=== PATIENT | male | born 1995 | race Caucasian/White ===

== ENCOUNTER 2020-12-14 16:51 | Inpatient (IN) | payer OTHER ==
[~2020-12-14] VITALS: Ht 172.7 cm; Wt 113.4 kg
[2020-12-14 17:25] VITALS: BP 160/87
--- NOTE | 2020-12-14 17:28 | NUR ---
PT SENT TO LOBBY
[2020-12-14] MEDS ORDERED: ONDANSETRON 4 MG ODT PO ONE (18:05)
[2020-12-14] MEDS ORDERED: ACETAMINOPHEN EXTRA STRENGTH 500 MG TAB PO ONE (18:05)
[2020-12-14] MEDS ORDERED: ALUMINUM HYD/MAG/SIMETHICONE 30 ML, DICYCLOMINE HCL LIQUID 20 MG, LIDOCAINE VISCOUS 2% ... PO ONE ×3 (18:05)
[2020-12-14] MEDS ORDERED: ALUMINUM HYD/MAG/SIMETHICONE 30 ML UDC ONE (18:39)
[2020-12-14] MEDS ORDERED: DICYCLOMINE HCL LIQUID 10 MG/5 ML UDC ONE (18:39)
--- NOTE | 2020-12-14 18:40 | NUR ---
PT AMBULATED TO BED
--- NOTE | 2020-12-14 18:45 | NUR ---
25/M BIB SELF WITH C/O EPIGASTRIC PAIN SINCE THIS MORNING. STATES HE WOKE UP WITH THE PAIN, DENIES V/D. REPORTS TAKING TYLENOL AND NAPROSYN TODAY WITH NO RELIEF. PT STATES 3/10 PRESSURE PAIN WITH NAUSEA. ABD SOFT NON TENDER. MEDHX: DENIES ALLERGIES: DENIES
[2020-12-14 18:54] LABS: BASOPHILS % (AUTO) 0.4 % (0.0-2.0); EOSINOPHILS % (AUTO) 0.3 % (0.0-4.0); HEMATOCRIT 48.9 % (36-52); HEMOGLOBIN 16.9 g/dL (12.0-18.0); LYMPHOCYTES # (AUTO) 2.1 K/uL (2.0-11.5); MEAN CORPUSCULAR HEMOGLOBIN 32 pg (27-31); MEAN CORPUSCULAR HGB CONC 35 g/dL (33-37); MONOCYTES # (AUTO) 0.4 K/uL (0.8-1.0); MONOCYTES % (AUTO) 3.7 % (1.7-9.3); NEUTROPHILS % (AUTO) 73.6 % (42.2-75.2); PLATELET COUNT (AUTO) 253 K/uL (140-450); RED BLOOD CELL COUNT(AUTO) 5.32 MIL/uL (4.20-6.10); WHITE BLOOD COUNT (AUTO) 9.5 K/uL (4.8-10.8)
[2020-12-14 19:09] LABS: ALBUMIN 4.3 g/dL (3.4-5.0); ANION GAP 19.4 (8-16); CARBON DIOXIDE 19.7 mmol/L (21-32); CREATININE 1.2 mg/dL (0.6-1.3); POTASSIUM 4.1 mmol/L (3.5-5.1); TOTAL BILIRUBIN 0.7 mg/dL (0.0-1.0)
[2020-12-14] MEDS ORDERED: NACL 0.9% 2,000 ML IV ONE (19:15)
[2020-12-14] MEDS ORDERED: MORPHINE SULFATE 4 MG/ML SYR IVP ONE (19:15)
--- NOTE | 2020-12-14 19:19 | NUR ---
Pt report given to MARCUS CAMEJO. Transfer of care at this time.
--- NOTE | 2020-12-14 19:20 | NUR ---
REPORT RECEIVED FROM BASHIR CAIN AT THIS TIME. PT PLACED IN GOWN AND ON DELIVERER OUTSIDE. WILL CONTINUE TO MONITOR.
--- NOTE | 2020-12-14 19:35 | NUR ---
PT REPORTS 2/10 PAIN. PT REQUESTS TO HOLD OFF ON MORPHINE 4MG IVP AT THIS TIME. WILL CONTINUE TO MONITOR.
[2020-12-14] MEDS ORDERED: MORPHINE SULFATE 2 MG/ML SYR IVP PRN (19:55)
[2020-12-14] MEDS ORDERED: MORPHINE SULFATE 4 MG/ML SYR IVP PRN (19:55)
--- NOTE | 2020-12-14 20:59 | NUR ---
1ST ATTEMPT TO CALL ANGELY FOR REPORT WITH NO ANSWER. WILL ATTEMPT AGAIN.
--- NOTE | 2020-12-14 21:08 | NUR ---
2ND CALL TO BASHIR AU FOR REPORT WITH NO ANSWER.
--- NOTE | 2020-12-14 21:13 | NUR ---
CALLED SANDOR FOR REPORT. PER SANDOR, WILL GIVE A CALL BACK IN 30 MINS.
--- NOTE | 2020-12-14 21:25 | NUR ---
PT SEEN WITH EYES CLOSED. VISIBLE CHEST RISE AND FALL NOTED. AROUSABLE TO VOICE AND LIGHT TOUCH. PT REMAINS NPO AT THIS TIME. WILL CONTINUE TO MONITOR.
[2020-12-14] MEDS: NACL 0.9% 1,000 ML IV SCH (22:00)
--- NOTE | 2020-12-14 22:25 | NUR ---
REPORT CALLED TO BASHIR PATTEN . ETA TO FLOOR 5 MINS.
--- NOTE | 2020-12-14 22:41 | NUR ---
PT TRANSPORTED TO ROOM 105A VIA W/C BY EMT
[2020-12-15 02:16] VITALS: BP 124/74
[2020-12-15] MEDS: NACL 0.9% 1,000 ML IV SCH ×5 (02:35→23:16)
--- NOTE | 2020-12-15 07:30 | NUR ---
REPORT RECEIVED FROM PM SHIFT RN FOR CONTINUITY OF CARE. PT IS A&0X4. ABLE TO MAKE TO NEEDS KNOWN. IV SITE RT FOREARM 20G, INFUSING NS AT 150 ML/HR. SKIN INTACT, WARM AND DRY. BED LOCKED IN LOWEST POSITION. SAFETY PRECAUTIONS IN PLACE. CALL LIGHT WITHIN IN REACH, WILL CONTINUE TO MONITOR.
[2020-12-15 08:00] VITALS: BP 118/68
--- NOTE | 2020-12-15 11:00 | NUR ---
PATIENT LYING DOWN IN BED SLEEPING, AROUSABLE BY VOICE. NO DISTRESS NOTED. WILL CONTINUE TO MONITOR.
[2020-12-15] MEDS ORDERED: DOCUSATE SODIUM 100 MG GELCAP PO PRN (11:55)
[2020-12-15] MEDS ORDERED: IBUPROFEN 800 MG TAB PO PRN (11:55)
[2020-12-15] MEDS ORDERED: LORazepam 2 MG/ML VIAL IM/IVP PRN (11:55)
[2020-12-15] MEDS ORDERED: ONDANSETRON 4 MG/2 ML VIAL IM/IVP PRN (11:55)
[2020-12-15] MEDS ORDERED: MAG SULF 2000 MG/WATER PREMIX 50 ML IV PRN (11:55)
[2020-12-15] MEDS ORDERED: POTASSIUM CHLORIDE 10 MEQ TABER PO PRN (11:55)
[2020-12-15] MEDS ORDERED: ZOLPIDEM 5 MG TAB PO PRN (11:55)
[2020-12-15] MEDS ORDERED: ACETAMINOPHEN 325 MG TAB PO PRN (11:55)
[2020-12-15] MEDS ORDERED: DEXTROSE 50% 50 ML SYR IVP PRN (12:00)
[2020-12-15 13:35] LABS: BASOPHILS % (AUTO) 0.4 % (0.0-2.0); EOSINOPHILS # (AUTO) 0.1 K/uL (0-0.4); HEMATOCRIT 42.2 % (36-52); HEMOGLOBIN 14.5 g/dL (12.0-18.0); LYMPHOCYTES # (AUTO) 2.2 K/uL (2.0-11.5); LYMPHOCYTES % (AUTO) 32.5 % (20.5-51.1); MEAN CORPUSCULAR HEMOGLOBIN 32 pg (27-31); MEAN CORPUSCULAR HGB CONC 34 g/dL (33-37); MEAN CORPUSCULAR VOLUME 93.3 fL (80-94); MONOCYTES # (AUTO) 0.4 K/uL (0.8-1.0); MONOCYTES % (AUTO) 5.2 % (1.7-9.3); NEUTROPHILS # (AUTO) 4.2 K/uL (1.8-7.7); NEUTROPHILS % (AUTO) 60.9 % (42.2-75.2); PLATELET COUNT (AUTO) 203 K/uL (140-450); RED BLOOD CELL COUNT(AUTO) 4.52 MIL/uL (4.20-6.10); RED CELL DISTRIBUTION WIDTH 12.7 % (11.6-13.7); WHITE BLOOD COUNT (AUTO) 6.8 K/uL (4.8-10.8)
[2020-12-15 13:44] LABS: ANION GAP 15.4 (8-16); CARBON DIOXIDE 22.4 mmol/L (21-32); CREATININE 0.9 mg/dL (0.6-1.3); POTASSIUM 3.8 mmol/L (3.5-5.1)
[2020-12-15 13:58] LABS: PHOSPHORUS 2.2 mg/dL (2.5-4.9); THYROID STIMULATING HORMONE 0.91 uIU/mL (0.34-3.74); TOTAL BILIRUBIN 0.6 mg/dL (0.0-1.0)
--- NOTE | 2020-12-15 13:58 | NUR ---
PATIENT LYING DOWN IN BED. NO DISTRESS NOTED. DENIES ANY PAIN. WILL CONTINUE TO MONITOR.
[2020-12-15 14:15] LABS: BILIRUBIN,DIRECT 0.2 mg/dL (0.0-0.3)
[2020-12-15 14:16] LABS: ALBUMIN 3.3 g/dL (3.4-5.0); MAGNESIUM 2.1 mg/dL (1.8-2.4)
[2020-12-15 16:00] VITALS: BP 117/58
[2020-12-15] MEDS: BLOOD GLUCOSE MONITORING 1 DEV DEV FS SCH ×2 (16:56→20:33)
--- NOTE | 2020-12-15 18:17 | NUR ---
PATIENT SITTING DOWN IN BED ON HIS PHONE. NO DISTRESS NOTED. DENIES ANY PAIN. WILL CONTINUE TO MONITOR.
--- NOTE | 2020-12-15 19:24 | NUR ---
GAVE REPORT TO FRUIT LOADER NURSE FOR CONTINUITY OF CARE. PATIENT IN STABLE CONDITION.
--- NOTE | 2020-12-15 19:25 | NUR ---
RECEIVED ENDORSEMENT FROM MORNING SHIFT REGARDING PATIENT'S CONTINUITY OF CARE. PATIENT STABLE IN BED. A&OX4. RESPIRATIONS EVEN AND UNLABORED. ON ROOM AIR. NO APPARENT SIGNS AND SYMPTOMS OF ACUTE RESPIRATORY DISTRESS. SKIN INTACT, WARM, AND DRY. PATIENT DENIES PAIN 0/10. RIGHT 20G ON FOREARM INTACT/PATENT WITH NS INFUSING AT 60 ML/HOUR. PLAN OF CARE AND WHITE BOARD COMMUNICATION UPDATED. ALL SAFETY MEASURES IN PLACE. BED ON LOW/LOCKED POSITION. CALL LIGHT WITHIN REACH. ENCOURAGED PATIENT TO USE CALL LIGHT FOR ANY NEEDS/ASSISTANCE. WILL CONTINUE TO MONITOR.
[2020-12-15 19:37] LABS: APPEARANCE,URINE CLEAR (CLEAR); BILIRUBIN,URINE NEGATIVE (NEGATIVE); BLOOD, URINE NEGATIVE (NEGATIVE); COLOR,URINE YELLOW (YELLOW); LEUKOCYTE ESTERASE ,URINE NEGATIVE (NEGATIVE); NITRITE, URINE NEGATIVE (NEGATIVE); UGLUCOSE 3+ (NEGATIVE)
--- NOTE | 2020-12-15 20:00 | NUR ---
PATIENT'S PLAN OF CARE WAS DISCUSSED AND REVIEWED WITH VIDEO GAME ANIMATOR: SHAJI HSIEH.
[2020-12-15 20:03] LABS: BARBITURATE, URINE NEGATIVE ng/ml (NEG <=200); BENZODIAZEPINE, URINE NEGATIVE ng/mL (NEG <=200); CANNABINOID, URINE NEGATIVE ng/mL (NEG <=50); COCAINE, URINE NEGATIVE ng/mL (NEG <=300); OPIATE, URINE NEGATIVE ng/mL (NEG <=2000); PHENCYCLIDINE SCREEN,URINE NEGATIVE ng/mL (NEG <=25)
--- NOTE | 2020-12-15 20:30 | NUR ---
CHECKED PATIENT'S BLOOD SUGAR. RESULT IS 275. WILL ADMINISTER SLIDING SCALE PER MD ORDER.
[2020-12-15] MEDS: INSULIN LISPRO SLIDING SCALE 100 UNITS/ML VIAL SUBQ PRN (20:36)
--- NOTE | 2020-12-15 21:25 | NUR ---
CHECKED ON PATIENT. PATIENT IS AWAKE AND STABLE. NO APPARENT S/SX OF ACUTE RESPIRATORY DISTRESS. DENIES PAIN 0/10. PATIENT REQUESTED ICE CHIPS.
--- NOTE | 2020-12-15 23:16 | NUR ---
REPLACED EMPTY BAG OF NS. ASSESSED IV SITE ON RIGHT FOREARM 20G. IV SITE IS INTACT AND PATENT. NEW BAG OF NS HANGING AND INFUSING AT 60 ML/HOUR. PATIENT DENIES PAIN 0/10. ALL SAFETY MEASURES IN PLACE. CALL LIGHT WITHIN REACH. WILL CONTINUE TO MONITOR.
[2020-12-16] VITALS: BP 113/69
--- NOTE | 2020-12-16 01:01 | NUR ---
ROUNDED ON PATIENT. STABLE AND SLEEPING COMFORTABLY IN SUPINE POSITION. BREATHING SYMMETRICAL. NO APPARENT S/SX OF ACUTE RESPIRATORY DISTRESS. ALL SAFETY MEASURES IN PLACE. CALL LIGHT WITHIN REACH. WILL CONTINUE TO MONITOR.
--- NOTE | 2020-12-16 03:01 | NUR ---
ROUNDED ON PATIENT. STABLE AND SLEEPING COMFORTABLY. RESPIRATIONS EVEN AND UNLABORED. NO APPARENT S/SX OF ACUTE RESPIRATORY DISTRESS. ALL SAFETY MEASURES IN PLACE. CALL LIGHT WITHIN REACH. WILL CONTINUE TO MONITOR.
--- NOTE | 2020-12-16 05:01 | NUR ---
CHECKED ON PATIENT. STABLE AND SLEEPING COMFORTABLY. BREATHING SYMMETRICAL. NO APPARENT S/SX OF ACUTE RESPIRATORY DISTRESS. CALL LIGHT WITHIN REACH. WILL CONTINUE TO MONITOR.
[2020-12-16] MEDS: BLOOD GLUCOSE MONITORING 1 DEV DEV FS SCH ×3 (05:43→17:13)
[2020-12-16] MEDS: INSULIN LISPRO SLIDING SCALE 100 UNITS/ML VIAL SUBQ PRN ×3 (05:45→17:14)
--- NOTE | 2020-12-16 05:45 | NUR ---
BS CHECKED - 174. INSULIN LISPRO SLIDING SCALE COVERAGE ADMINISTERED. HEALTH TEACHINGS GIVEN ON THE IMPORTANCE OF DIET, VEGETABLE AND FRUITS ON HIS HEALTH. AVOID FRIED AND OTHER HIGH CHOLESTEROL FOOD LIKE FAST FOOD ITEMS WELL SWEET FOODS AND CARBONATED DRINKS TO CONTROL DIABETES AND EXERCISING REGULARLY. VERBALIZED UNDERSTANDING.
[2020-12-16 06:18] LABS: T4 (THYROXINE) 4.8 ug/dL (4.5-12.0)
[2020-12-16 07:06] LABS: BASOPHILS % (AUTO) 0.4 % (0.0-2.0); EOSINOPHILS # (AUTO) 0.1 K/uL (0-0.4); EOSINOPHILS % (AUTO) 2.1 % (0.0-4.0); HEMATOCRIT 42.9 % (36-52); HEMOGLOBIN 14.7 g/dL (12.0-18.0); LYMPHOCYTES # (AUTO) 2.2 K/uL (2.0-11.5); LYMPHOCYTES % (AUTO) 36.3 % (20.5-51.1); MEAN CORPUSCULAR HEMOGLOBIN 32 pg (27-31); MEAN CORPUSCULAR HGB CONC 34 g/dL (33-37); MEAN CORPUSCULAR VOLUME 93.8 fL (80-94); MONOCYTES # (AUTO) 0.3 K/uL (0.8-1.0); MONOCYTES % (AUTO) 5.8 % (1.7-9.3); NEUTROPHILS # (AUTO) 3.3 K/uL (1.8-7.7); NEUTROPHILS % (AUTO) 55.4 % (42.2-75.2); PLATELET COUNT (AUTO) 192 K/uL (140-450); RED BLOOD CELL COUNT(AUTO) 4.58 MIL/uL (4.20-6.10); RED CELL DISTRIBUTION WIDTH 12.7 % (11.6-13.7)
[2020-12-16 07:18] LABS: ANION GAP 16.7 (8-16); CREATININE 0.8 mg/dL (0.6-1.3); POTASSIUM 3.7 mmol/L (3.5-5.1)
--- NOTE | 2020-12-16 07:20 | NUR ---
CONDITION REMAIN STABLE. ENDORSED TO AM SHIFT NURSE FOR CONTINUITY OF CARE.
--- NOTE | 2020-12-16 07:39 | NUR ---
RECEIVED ENDORSEMENT FROM INCINERATOR PLANT SUPERVISOR REGARDING PATIENT'S CONTINUITY OF CARE. PATIENT STABLE IN BED. A&OX4. RESPIRATIONS EVEN AND UNLABORED. ON ROOM AIR. NO APPARENT SIGNS AND SYMPTOMS OF ACUTE RESPIRATORY DISTRESS. SKIN INTACT, WARM, AND DRY. PATIENT DENIES PAIN 0/10. RIGHT 20G ON FOREARM INTACT/PATENT WITH NS INFUSING AT 60 ML/HOUR. PLAN OF CARE AND WHITE BOARD COMMUNICATION UPDATED. ALL SAFETY MEASURES IN PLACE. BED ON LOW/LOCKED POSITION. CALL LIGHT WITHIN REACH. ENCOURAGED PATIENT TO USE CALL LIGHT FOR ANY NEEDS/ASSISTANCE.
[2020-12-16 07:43] LABS: PHOSPHORUS 2.4 mg/dL (2.5-4.9)
[2020-12-16 08:00] VITALS: BP 125/72
--- NOTE | 2020-12-16 08:58 | NUR ---
PATIENT HAS BEEN SCREENED AND CATEGORIZED LOW NUTRITION RISK. PATIENT WILL BE SEEN WITHIN 7 DAYS OF ADMISSION. 12/21/[address]
--- NOTE | 2020-12-16 09:21 | NUR ---
PATIENT ON BED NO COMPLAINS, NO SOD NOTED, ALL SAFETY MEASURES ON PLACE CALLS LIGHT WITHIN REACH
--- NOTE | 2020-12-16 11:21 | NUR ---
PATIENT ON BED NO COMPLAINS, NO SOD NOTED, ALL SAFETY MEASURES ON PLACE CALLS LIGHT WITHIN REACH
[2020-12-16] MEDS ORDERED: BLOO-224 INH (12:36)
[2020-12-16] MEDS ORDERED: IBUP-1842 PO (12:36)
[2020-12-16] MEDS ORDERED: lancets (12:36)
[2020-12-16] MEDS ORDERED: METF-430 PO (12:36)
[2020-12-16] MEDS ORDERED: glucometer SUBQ (12:36)
[2020-12-16] MEDS ORDERED: POTASSIUM PHOSPHATE 15 MM in NACL 0.9% 250 ML IV SCH (13:00)
--- NOTE | 2020-12-16 13:05 | NUR ---
PATIENT ON BED NO COMPLAINS, NO SOD NOTED, ALL SAFETY MEASURES ON PLACE CALLS LIGHT WITHIN REACH
--- NOTE | 2020-12-16 14:38 | NUR ---
DC [age] YRS OLD MALE PATIENT WAS ADMITTED FROM HOME WITH A DX OF PANCREATITIS. LIPASE LEVEL 1068 ON ADMISSION ADMINISTERED IVF, AND CONTINUED HOME MEDS. LIPASE LEVEL 640. CT ABD AND US ABD SHOWED NO BOWEL OBSTRUCTION AND NO EVIDENCE OF CHOLECYSTITIS. DC PLAN TO GO HOME WHEN STABLE CM TO FOLLOW.
--- NOTE | 2020-12-16 15:09 | NUR ---
PATIENT ON BED NO COMPLAINS, SIDE, NO SOD NOTED, PLAN FOR PATIENT TO BE DISCHARGED, ALL SAFETY MEASURES ON PLACE CALLS LIGHT WITHIN REACH
[2020-12-16 15:22] VITALS: BP 125/72
[2020-12-16 16:00] VITALS: BP 139/77
--- NOTE | 2020-12-16 17:04 | NUR ---
PATIENT ON BED NO COMPLAINS, SIDE, NO SOD NOTED, PLAN FOR PATIENT TO BE DISCHARGED, ALL SAFETY MEASURES ON PLACE CALLS LIGHT WITHIN REACH
--- NOTE | 2020-12-16 19:53 | NUR ---
FULL BED SIDE REPORT GIVEN TO HEEL DIPPER NURSE Addendum: 12/16/20 at 2000 by Danna Hernandez RN RN PATIENT DISCHARGE PAPER READY, GIVEN TO HEEL DIPPER NURSE MELODIE, HE WILL BE DISCHARGING THE PATIENT SINCE PATIENT IV MEDICATION STILL RUNNING
--- NOTE | 2020-12-20 16:30 | NUR ---
DC PLANNING: SW CALL PATIENT AT AND DISCUSS PATIENT'S FOLLOW UP APPOINTMENT. PATIENT STATED THAT HE WANT'S TO MAKE HIS OWN FOLLOW UP APPOINTMENT WITH PCP. SW THANK PATIENT FOR THE INFORMATION AND ENDED THE CALL.
== END 2020-12-16 20:15 | disposition home or self-care (01) | DRG 282 ==
LOC: MED 16:51 → MTU 19:54
DX: K85.90 Acute pancreatitis without necrosis or infection, unspecified (principal); E11.00 Type 2 diabetes mellitus with hyperosmolarity without nonketotic hyperglycemic-hyperosmolar coma (NKHHC); E44.1 Mild protein-calorie malnutrition; K75.81 Nonalcoholic steatohepatitis (NASH); E87.1 Hypo-osmolality and hyponatremia; E83.39 Other disorders of phosphorus metabolism; E66.9 Obesity, unspecified; R74.01 Elevation of levels of liver transaminase levels; E11.65 Type 2 diabetes mellitus with hyperglycemia; E86.0 Dehydration; Z83.3 Family history of diabetes mellitus; Z68.38 Body mass index [BMI] 38.0-38.9, adult
CPT/HCPCS: 36415; 76705; 80048; 80053; 80076; 80305; 81003; 82150; 82465; 82948; 83036; 83690; 83735; 83880; 84100; 84134; 84436; 84443; 85025; 85610; 85730; 87081; 96360; 96361; 99285; J7030; Q0092; Q0162; Q9967

== ENCOUNTER 2022-11-17 15:54 | Inpatient (IN) | payer OTHER ==
[~2022-11-17] VITALS: Ht 172.7 cm; Wt 118.4 kg
[~2022-11-17 15:54] MED LIST: BLOO-224 INH; IBUP-1842 PO; METF-430 PO; glucometer SUBQ; lancets
[2022-11-17 16:23] VITALS: BP 148/90; PULSE 89; RESP 20; TEMP 97.8; O2SAT 96
[2022-11-17] MEDS ORDERED: ONDANSETRON 4 MG/2 ML VIAL IVP ONE (17:25)
[2022-11-17] MEDS ORDERED: NACL 0.9% 1,000 ML IV SCH ×2 (17:25→18:45)
[2022-11-17 17:40] LABS: BASOPHILS % (AUTO) 0.3 % (0.0-2.0); EOSINOPHILS # (AUTO) 0.1 K/uL (0-0.4); EOSINOPHILS % (AUTO) 1.5 % (0.0-4.0); HEMATOCRIT 51.3 % (36-52); HEMOGLOBIN 17.7 g/dL (12.0-18.0); LYMPHOCYTES # (AUTO) 2.2 K/uL (2.0-11.5); LYMPHOCYTES % (AUTO) 25.1 % (20.5-51.1); MEAN CORPUSCULAR HEMOGLOBIN 32 pg (27-31); MEAN CORPUSCULAR HGB CONC 34 g/dL (33-37); MEAN CORPUSCULAR VOLUME 91.5 fL (80-94); MONOCYTES # (AUTO) 0.5 K/uL (0.8-1.0); MONOCYTES % (AUTO) 5.4 % (1.7-9.3); NEUTROPHILS % (AUTO) 67.7 % (42.2-75.2); PLATELET COUNT (AUTO) 196 K/uL (140-450); RED BLOOD CELL COUNT(AUTO) 5.61 MIL/uL (4.20-6.10); RED CELL DISTRIBUTION WIDTH 12.9 % (11.6-13.7); WHITE BLOOD COUNT (AUTO) 8.8 K/uL (4.8-10.8)
[2022-11-17 17:48] LABS: ANION GAP 17.8 (8-16); CALCIUM 9.6 mg/dL (8.5-10.1); CARBON DIOXIDE 21.6 mmol/L (21-32); CREATININE 1.1 mg/dL (0.6-1.3); POTASSIUM 5.4 mmol/L (3.5-5.1)
[2022-11-17] MEDS ORDERED: INSULIN REGULAR, HUMAN 100 UNIT in NACL 0.9% 100 ML IV ONE ×2 (18:00)
[2022-11-17] MEDS ORDERED: POTASSIUM CHLORIDE 10 MEQ TABER PO PRN (18:45)
[2022-11-17] MEDS ORDERED: MORPHINE SULFATE 2 MG/ML SYR IVP PRN (18:45)
[2022-11-17] MEDS ORDERED: MAGNESIUM OXIDE 400 MG TAB PO PRN (18:45)
[2022-11-17] MEDS ORDERED: MAG SULF 2000 MG/WATER PREMIX 50 ML IV PRN (18:45)
[2022-11-17] MEDS ORDERED: ACETAMINOPHEN 325 MG TAB PO PRN (18:45)
[2022-11-17] MEDS ORDERED: KCL 20 MEQ IN 100 mL PREMIX 200 ML IV PRN (18:45)
[2022-11-17] MEDS ORDERED: HYDROcodone/APAP 5/325 MG 1 TAB TAB PO PRN (18:45)
[2022-11-17] MEDS ORDERED: INSULIN REGULAR, HUMAN 100 UNIT in NACL 0.9% 100 ML IV SCH ×2 (18:50)
[2022-11-17] MEDS: DEXT 5% / NACL 0.45% 1,000 ML IV SCH ×4 (19:20→23:44)
[2022-11-17] MEDS: INSULIN REGULAR, HUMAN 100 UNIT in NACL 0.9% 100 ML IV SCH ×4 (19:20→23:00)
[2022-11-17] MEDS: NACL 0.9% 1,000 ML IV SCH ×2 (19:20→21:53)
[2022-11-17 20:00] VITALS: BP 132/70; PULSE 91; RESP 20; TEMP 98.5; O2SAT 97
[2022-11-17] MEDS ORDERED: ONDANSETRON 4 MG/2 ML VIAL IVP PRN (20:05)
[2022-11-17] MEDS: BLOOD GLUCOSE MONITORING 1 DEV DEV FS SCH ×4 (20:59→23:33)
[2022-11-17] MEDS: FAMOTIDINE 20 MG/2 ML VIAL IV SCH (21:09)
[2022-11-17 21:43] LABS: APPEARANCE,URINE CLEAR (CLEAR); BILIRUBIN,URINE NEGATIVE (NEGATIVE); BLOOD, URINE NEGATIVE (NEGATIVE); COLOR,URINE YELLOW (YELLOW); LEUKOCYTE ESTERASE ,URINE NEGATIVE (NEGATIVE); NITRITE, URINE NEGATIVE (NEGATIVE); PH,URINE 5.5 (5.0-9.0); PROTEIN,URINE NEGATIVE (NEGATIVE); UGLUCOSE 3+ (NEGATIVE); UROBILINOGEN,URINE 0.2 EU/dL (0.2 - 1)
[2022-11-17 22:00] VITALS: BP 120/65; PULSE 95; RESP 14; TEMP 97.9; O2SAT 97
[2022-11-18] VITALS (10 sets, daily range): BP systolic 97–129; BP diastolic 54–81; PULSE 61–106; RESP 17–24; TEMP 96–98.6; O2SAT 96–98
[2022-11-18] MEDS: BLOOD GLUCOSE MONITORING 1 DEV DEV FS SCH ×5 (00:22→20:10)
[2022-11-18 00:27] LABS: ANION GAP 13.5 (8-16); CALCIUM 8.4 mg/dL (8.5-10.1); CARBON DIOXIDE 23.1 mmol/L (21-32); CREATININE 0.8 mg/dL (0.6-1.3); POTASSIUM 3.6 mmol/L (3.5-5.1)
[2022-11-18 00:29] LABS: MAGNESIUM 1.9 mg/dL (1.8-2.4); PHOSPHORUS 3.6 mg/dL (2.5-4.9)
[2022-11-18] MEDS ORDERED: NACL 0.9% 1,000 ML IV SCH (00:45)
[2022-11-18] MEDS ORDERED: DEXTROSE 50% 50 ML SYR IVP PRN (00:45)
[2022-11-18 06:07] LABS: BASOPHILS % (AUTO) 0.2 % (0.0-2.0); EOSINOPHILS # (AUTO) 0.1 K/uL (0-0.4); EOSINOPHILS % (AUTO) 1.8 % (0.0-4.0); HEMATOCRIT 42.5 % (36-52); HEMOGLOBIN 14.7 g/dL (12.0-18.0); LYMPHOCYTES # (AUTO) 1.3 K/uL (2.0-11.5); LYMPHOCYTES % (AUTO) 19.4 % (20.5-51.1); MEAN CORPUSCULAR HEMOGLOBIN 31 pg (27-31); MEAN CORPUSCULAR HGB CONC 35 g/dL (33-37); MEAN CORPUSCULAR VOLUME 90.2 fL (80-94); MONOCYTES # (AUTO) 0.6 K/uL (0.8-1.0); MONOCYTES % (AUTO) 9.3 % (1.7-9.3); NEUTROPHILS # (AUTO) 4.7 K/uL (1.8-7.7); NEUTROPHILS % (AUTO) 69.3 % (42.2-75.2); PLATELET COUNT (AUTO) 221 K/uL (140-450); RED BLOOD CELL COUNT(AUTO) 4.71 MIL/uL (4.20-6.10); RED CELL DISTRIBUTION WIDTH 13.1 % (11.6-13.7); WHITE BLOOD COUNT (AUTO) 6.7 K/uL (4.8-10.8)
[2022-11-18 06:28] LABS: ALBUMIN 3.2 g/dL (3.4-5.0); ANION GAP 14.8 (8-16); CALCIUM 8.2 mg/dL (8.5-10.1); CARBON DIOXIDE 21.9 mmol/L (21-32); CREATININE 0.9 mg/dL (0.6-1.3); POTASSIUM 3.7 mmol/L (3.5-5.1); TOTAL BILIRUBIN 0.8 mg/dL (0.0-1.0); TOTAL PROTEIN, SERUM 6.7 g/dL (6.4-8.2)
[2022-11-18] MEDS: INSULIN LISPRO SLIDING SCALE 100 UNITS/ML VIAL SUBQ PRN ×4 (07:54→20:15)
[2022-11-18] MEDS: FAMOTIDINE 20 MG/2 ML VIAL IV SCH ×2 (08:56→20:11)
[2022-11-18] MEDS ORDERED: INSULIN LANTUS 100 UNITS/ML 10 ML VIAL SUBQ SCH ×3 (09:00→13:08)
[2022-11-19 03:15] VITALS: BP 122/74; PULSE 80; RESP 18; TEMP 97.1; O2SAT 99
[2022-11-19] MEDS: BLOOD GLUCOSE MONITORING 1 DEV DEV FS SCH ×2 (05:16→11:22)
[2022-11-19] MEDS: INSULIN LISPRO SLIDING SCALE 100 UNITS/ML VIAL SUBQ PRN ×2 (06:08→11:26)
[2022-11-19 06:43] LABS: BASOPHILS % (AUTO) 0.4 % (0.0-2.0); EOSINOPHILS # (AUTO) 0.1 K/uL (0-0.4); EOSINOPHILS % (AUTO) 2.5 % (0.0-4.0); HEMATOCRIT 42.3 % (36-52); HEMOGLOBIN 14.6 g/dL (12.0-18.0); LYMPHOCYTES # (AUTO) 1.5 K/uL (2.0-11.5); LYMPHOCYTES % (AUTO) 37.8 % (20.5-51.1); MEAN CORPUSCULAR HEMOGLOBIN 31 pg (27-31); MEAN CORPUSCULAR HGB CONC 35 g/dL (33-37); MEAN CORPUSCULAR VOLUME 90.7 fL (80-94); MONOCYTES # (AUTO) 0.3 K/uL (0.8-1.0); MONOCYTES % (AUTO) 7.5 % (1.7-9.3); NEUTROPHILS # (AUTO) 2.1 K/uL (1.8-7.7); NEUTROPHILS % (AUTO) 51.8 % (42.2-75.2); PLATELET COUNT (AUTO) 199 K/uL (140-450); RED BLOOD CELL COUNT(AUTO) 4.66 MIL/uL (4.20-6.10); WHITE BLOOD COUNT (AUTO) 4.1 K/uL (4.8-10.8)
[2022-11-19 07:17] LABS: ANION GAP 13.2 (8-16); CALCIUM 8.1 mg/dL (8.5-10.1); CARBON DIOXIDE 22.2 mmol/L (21-32); CREATININE 0.9 mg/dL (0.6-1.3); MAGNESIUM 1.9 mg/dL (1.8-2.4); POTASSIUM 3.4 mmol/L (3.5-5.1); TOTAL BILIRUBIN 0.5 mg/dL (0.0-1.0); TOTAL PROTEIN, SERUM 6.3 g/dL (6.4-8.2)
[2022-11-19 08:00] VITALS: BP 119/74; PULSE 80; PULSE 82; RESP 18; RESP 20; TEMP 97.6; O2SAT 96
[2022-11-19] MEDS: FAMOTIDINE 20 MG/2 ML VIAL IV SCH (08:41)
[2022-11-19] MEDS ORDERED: INSULIN LANTUS 100 UNITS/ML 10 ML VIAL SUBQ SCH (09:00)
[2022-11-19 10:23] VITALS: O2SAT 96
[2022-11-19] MEDS ORDERED: POTASSIUM CHLORIDE 10 MEQ TABER PO SCH (10:55)
[2022-11-19] MEDS ORDERED: METF-346 PO ×2 (14:07→15:31)
[2022-11-19] MEDS ORDERED: LANTUS SUBQ ×2 (14:07→15:31)
[2022-11-19] MEDS ORDERED: INSU-656 SUBQ (14:16)
[2022-11-19] MEDS ORDERED: SLIDE SUBQ (14:17)
[2022-11-19 15:23] VITALS: BP 107/70; PULSE 70; RESP 18; TEMP 97.3
[2022-11-19] MEDS ORDERED: HUMSLIDE SUBQ (15:31)
[2022-11-20] MEDS ORDERED: INSULIN LANTUS 100 UNITS/ML 10 ML VIAL SUBQ SCH (09:00)
== END 2022-11-19 16:30 | disposition home or self-care (01) | DRG 420 ==
LOC: MED 15:54 → MTU 18:43 → MIC 19:08 → MTU 11-18 17:45
PROVIDERS: ADMIT Internal Medicine; ATTEND Internal Medicine
DX: E11.00 Type 2 diabetes mellitus with hyperosmolarity without nonketotic hyperglycemic-hyperosmolar coma (NKHHC) (principal); N17.9 Acute kidney failure, unspecified; E44.0 Moderate protein-calorie malnutrition; E87.1 Hypo-osmolality and hyponatremia; E86.1 Hypovolemia; E87.5 Hyperkalemia; Z83.3 Family history of diabetes mellitus; Z79.1 Long term (current) use of non-steroidal anti-inflammatories (NSAID); Z79.899 Other long term (current) drug therapy; Z68.39 Body mass index [BMI] 39.0-39.9, adult
CPT/HCPCS: 36415; 80048; 80053; 81003; 82009; 82803; 82948; 83036; 83690; 83735; 84100; 84681; 85025; 87081; 96361; 96374; 99291; J1644; J1815; J2405; J3490

== ENCOUNTER 2022-12-20 12:06 | Emergency (ER) | payer OTHER ==
[~2022-12-20] VITALS: Ht 172.7 cm; Wt 112.5 kg
[~2022-12-20 12:06] MED LIST changes: +HUMSLIDE SUBQ; -IBUP-1842 PO; +LANTUS SUBQ; +METF-346 PO; -METF-430 PO
[2022-12-20 12:11] VITALS: BP 124/76; PULSE 79; RESP 14; TEMP 97.3; O2SAT 98
[2022-12-20] MEDS ORDERED: CLOT1CRE82 TP (12:33)
[2022-12-20 12:38] LABS: APPEARANCE,URINE CLEAR (CLEAR); BILIRUBIN,URINE NEGATIVE (NEGATIVE); BLOOD, URINE NEGATIVE (NEGATIVE); COLOR,URINE YELLOW (YELLOW); LEUKOCYTE ESTERASE ,URINE NEGATIVE (NEGATIVE); NITRITE, URINE NEGATIVE (NEGATIVE); PROTEIN,URINE TRACE (NEGATIVE); UGLUCOSE 2+ (NEGATIVE); UROBILINOGEN,URINE 0.2 EU/dL (0.2 - 1)
== END 2022-12-20 13:00 | disposition home or self-care (01) ==
LOC: MED 12:06
DX: N47.6 Balanoposthitis (principal); E11.9 Type 2 diabetes mellitus without complications; Z79.4 Long term (current) use of insulin; Z79.899 Other long term (current) drug therapy
CPT/HCPCS: 81003; 87491; 99283

== ENCOUNTER 2022-12-27 13:12 | Emergency (ER) | payer OTHER ==
[~2022-12-27] VITALS: Ht 172.7 cm; Wt 112.5 kg
[~2022-12-27 13:12] MED LIST changes: +CLOT1CRE82 TP
[2022-12-27 13:19] VITALS: BP 134/70; PULSE 81; RESP 16; TEMP 98.3; O2SAT 98
[2022-12-27] MEDS ORDERED: HYD1C TP (13:46)
[2022-12-27] MEDS ORDERED: BACTO TP (13:46)
[2022-12-27 13:59] VITALS: BP 130/70; PULSE 72; RESP 16; TEMP 98; O2SAT 98
== END 2022-12-27 13:50 | disposition home or self-care (01) ==
LOC: MED 13:12
DX: N47.6 Balanoposthitis (principal); E11.9 Type 2 diabetes mellitus without complications; Z79.4 Long term (current) use of insulin; Z79.899 Other long term (current) drug therapy
CPT/HCPCS: 99283

== ENCOUNTER 2023-03-28 20:51 | Emergency (ER) | payer OTHER ==
[~2023-03-28] VITALS: Ht 172.7 cm; Wt 106.6 kg
[~2023-03-28 20:51] MED LIST changes: +BACTO TP; +HYD1C TP
[2023-03-28 20:55] VITALS: BP 111/71; PULSE 71; RESP 18; TEMP 96.7; O2SAT 97
[2023-03-28] MEDS ORDERED: ALUMINUM HYD/MAG/SIMETHICONE 30 ML, DICYCLOMINE HCL LIQUID 20 MG, LIDOCAINE VISCOUS 2% ... PO ONE ×3 (21:05)
[2023-03-28 21:22] LABS: BASOPHILS % (AUTO) 0.4 % (0.0-2.0); EOSINOPHILS % (AUTO) 0.6 % (0.0-4.0); HEMATOCRIT 45.5 % (36-52); HEMOGLOBIN 15.9 g/dL (12.0-18.0); LYMPHOCYTES # (AUTO) 2.1 K/uL (2.0-11.5); LYMPHOCYTES % (AUTO) 27.2 % (20.5-51.1); MEAN CORPUSCULAR HEMOGLOBIN 31 pg (27-31); MEAN CORPUSCULAR HGB CONC 35 g/dL (33-37); MEAN CORPUSCULAR VOLUME 89.2 fL (80-94); MONOCYTES # (AUTO) 0.4 K/uL (0.8-1.0); NEUTROPHILS # (AUTO) 5.2 K/uL (1.8-7.7); NEUTROPHILS % (AUTO) 66.8 % (42.2-75.2); PLATELET COUNT (AUTO) 263 K/uL (140-450); WHITE BLOOD COUNT (AUTO) 7.8 K/uL (4.8-10.8)
[2023-03-28 21:31] LABS: ANION GAP 11.1 (8-16); CALCIUM 9.1 mg/dL (8.5-10.1); CARBON DIOXIDE 28.9 mmol/L (21-32); CREATININE 0.9 mg/dL (0.6-1.3)
[2023-03-28] MEDS ORDERED: ALUMINUM HYD/MAG/SIMETHICONE 30 ML UDC ONE (21:35)
[2023-03-28] MEDS ORDERED: DICYCLOMINE HCL LIQUID 10 MG/5 ML UDC ONE (21:36)
[2023-03-28 21:55] LABS: ALBUMIN 3.6 g/dL (3.4-5.0); BILIRUBIN,DIRECT 0.2 mg/dL (0.0-0.3); TOTAL BILIRUBIN 0.7 mg/dL (0.0-1.0); TOTAL PROTEIN, SERUM 7.6 g/dL (6.4-8.2)
[2023-03-28] MEDS ORDERED: MAG-27 PO (22:53)
[2023-03-28 23:00] VITALS: BP 111/71; PULSE 71; RESP 18; TEMP 96.7; O2SAT 97
== END 2023-03-28 23:00 | disposition home or self-care (01) ==
LOC: MED 20:51
DX: R10.84 Generalized abdominal pain (principal); E11.9 Type 2 diabetes mellitus without complications; I10 Essential (primary) hypertension; Z79.4 Long term (current) use of insulin; Z79.899 Other long term (current) drug therapy
CPT/HCPCS: 36415; 80048; 80076; 83690; 85025; 99283